=== PATIENT | female | born 1935 | race Caucasian/White ===

== ENCOUNTER 2018-02-18 04:49 | Inpatient (IN) | payer OTHER ==
--- NOTE | 2018-02-18 04:57 | PDOC ---
History of Present Illness - General History Source: Patient - History of Present Illness Initial Comments: 02/18/18 05:12 82 year old female send from inpatient sleep study for having shortness of breath. patient is currently a resident at [facility]. As per family member patient uses a biPAP at nighttime and oxygen during the day. Patient was sent to the sleep study to evaluate the use of CPAP versus BiPAP and rule out severity of obstructive sleep apnea. As per family member patient has been sitting in the chair sleeping since arriving at the sleep study. Patient was having difficulty transferring to the bed from chair.patient reported difficulty after being transferred to the bed to chair. Patient has a past medical history of peripheral vascular disease, A. fib, GERD , shortness of breath, dysphasia, abdominal aortic aneurysm without rupture, acute respiratory failure with hypercapnia, hypertension, morbid obesity, hyperlipidemia, chronic obstructive pulmonary disease, heart failure. 02/18/18 06:09 <Oksana Marti - Last Filed: 02/18/18 06:47> <Svitlana Nguyen - Last Filed: 02/18/18 07:50> - General Chief Complaint: Shortness of Breath Stated Complaint: S.O.B. Time Seen by Provider: 02/18/18 04:57 Past History - Suicide/Smoking/Psychosocial Hx Smoking History: Never smoked Have you smoked in the past 12 months: No Information on smoking cessation initiated: No Hx Alcohol Use: No Drug/Substance Use Hx: No <Oksana Marti - Last Filed: 02/18/18 06:47> <Svitlana Nguyen - Last Filed: 02/18/18 07:50> - Past Medical History Allergies/Adverse Reactions: Allergies Allergy/AdvReac Type Severity Reaction Status Date / Time No Known Allergies Allergy Verified 02/18/18 04:55 Review of Systems - Review of Systems Able to Perform ROS?: Yes Is the patient limited [place] proficient: No Constitutional: No: Symptoms Reported, See HPI, Chills, Diaphoresis, Fever, Loss of Appetite, Malaise, Night Sweats, Weakness, Weight Stable, Unintentional Wgt. Loss, Unexplained wgt Loss, Other Respiratory: Yes: Shortness of Breath Cardiac (ROS): No: Symptoms Reported, See HPI, Chest Pain, Edema, Irregular Heart Rate, Lightheadedness, Palpitations, Syncope, Chest Tightness, Other ABD/GI: No: Symptoms Reported, See HPI, Abdominal Distended, Abd. Pain w/ defecation, Blood Streaked Bowels, Constipated, Diarrhea, Difficulty Swallowing , Nausea, Poor Appetite, Poor Fluid Intake, Rectal Bleeding, Vomiting, Indigestion, Abdominal cramping, Tarry Stools, Other : No: Symptoms Reported, See HPI, Burning, Dysuria, Discharge, Frequency, Flank Pain, Hematuria, Incontinence, Pain, Urgency, Testicular Mass, Testicular Swelling, Lesions, Testicular Pain, Other <Oksana Marti. - Last Filed: 02/18/18 06:47> *Physical Exam - Vital Signs Last Vital Signs Temp Pulse Resp BP Pulse Ox 98.3 F 73 16 138/86 95 02/18/18 04:55 02/18/18 04:55 02/18/18 04:55 02/18/18 04:55 02/18/18 04:55 - Physical Exam General Appearance: Yes: Appropriately Dressed Respiratory/Chest: positive: Lungs Clear, Normal Breath Sounds Cardiovascular: positive: Murmur, Bradycardia Gastrointestinal/Abdominal: positive: Normal Bowel Sounds (final), Soft Extremity: positive: Normal Capillary Refill, Normal Inspection, Normal Range of Motion Integumentary: positive: Normal Color, Dry, Warm Neurologic: positive: Fully Oriented, Alert, Normal Mood/Affect <Oksana Marti. - Last Filed: 02/18/18 06:47> - Vital Signs Last Vital Signs Temp Pulse Resp BP Pulse Ox 98.3 F 70 20 135/75 97 02/18/18 04:55 02/18/18 07:23 02/18/18 07:23 02/18/18 07:23 02/18/18 07:23 <Svitlana Nguyen - Last Filed: 02/18/18 07:50> Moderate Sedation - Procedure Monitoring Vital Signs: Procedure Monitoring Vital Signs Temperature 98.3 F 02/18/18 04:55 Pulse Rate 73 02/18/18 04:55 Respiratory Rate 16 02/18/18 04:55 Blood Pressure 138/86 02/18/18 04:55 O2 Sat by Pulse Oximetry (%) 95 02/18/18 04:55 <Oksana Marti - Last Filed: 02/18/18 06:47> - Procedure Monitoring Vital Signs: Procedure Monitoring Vital Signs Temperature 98.3 F 02/18/18 04:55 Pulse Rate 70 02/18/18 07:23 Respiratory Rate 20 02/18/18 07:23 Blood Pressure 135/75 02/18/18 07:23 O2 Sat by Pulse Oximetry (%) 97 02/18/18 07:23 <Svitlana Nguyen - Last Filed: 02/18/18 07:50> Heart Score/ECG Review - History History: Slightly suspicious - Electrocardiogram EKG: Normal - Age Age: >/= 65 - Risk Factors Risk Factors Heart Score: Yes Hx Hypercholesterolemia, Yes Hx Hypertension, Yes Hx Obesity Based on the list above the patient has:: >/=3 risk factors or Hx atherosclerotic disease - Troponin Troponin: </= normal limit - Score Heart Score - Total: 4 - ECG Intrepretation Comment:: 02/18/18 06:20 A fib : [address] abnormality <Oksana Marti - Last Filed: 02/18/18 06:47> ED Treatment Course - LABORATORY CBC & Chemistry Diagram: 02/18/18 05:44 02/18/18 05:44 <Oksana Marti - Last Filed: 02/18/18 06:47> - LABORATORY CBC & Chemistry Diagram: 02/18/18 05:44 02/18/18 05:44 - ADDITIONAL ORDERS Additional order review: Laboratory Results 02/18/18 02/18/18 05:44 05:44 PT with INR 12.70 INR 1.08 Sodium 139 Potassium 3.9 Chloride 97 L Carbon Dioxide 36 H Anion Gap 6 L BUN 15 Creatinine 0.7 Creat Clearance w eGFR > 60 Random Glucose 96 Calcium 8.9 Magnesium 2.2 Total Bilirubin 0.6 AST 14 L ALT 13 Alkaline Phosphatase 78 Creatine Kinase 26 Troponin I 0.16 H B-Natriuretic Peptide 1248.7 H Total Protein 6.9 Albumin 3.3 L 02/18/18 05:44 RBC 4.38 MCV 88.7 MCHC 32.0 RDW 15.2 MPV 8.2 Neutrophils % 73.7 Lymphocytes % 17.6 Monocytes % 6.3 Eosinophils % 1.3 Basophils % 1.1 <Svitlana Nguyen - Last Filed: 02/18/18 07:50> Progress Note - Progress Note Progress Note: A: Shortness of breath P: cbc cmp cardiac labs chest xray <Oksana Marti - Last Filed: 02/18/18 06:47> Medical Decision Making - Medical Decision Making 02/18/18 06:42 Kayla East paged covering [facility] cardiology paged. will admit for further management of care, 02/18/18 06:47 Dr. chilel aware. advised serial troponin and lasix <Oksana Marti. - Last Filed: 02/18/18 06:47> *DC/Admit/Observation/Transfer <Oksana Marti. - Last Filed: 02/18/18 06:47> - Discharge Dispostion Decision to Admit order: Yes <Svitlana Nguyen - Last Filed: 02/18/18 07:50> Diagnosis at time of Disposition: Shortness of breath, Elevated troponin CHF exacerbation Qualifiers: Heart failure type: unspecified Qualified Code(s): I50.9 - Heart failure, unspecified - Discharge Dispostion Condition at time of disposition: Guarded
[2018-02-18 05:00] VITALS: BMI 27.4
[2018-02-18 06:00] LABS: BASO % 1.1 % (0-2.0); EOS % 1.3 % (0-4.5); HEMATOCRIT 38.8 % (32.4-45.2); HEMOGLOBIN 12.4 GM/dL (10.7-15.3); LYMPH % 17.6 % (8-40); MCH 28.3 pg (25.7-33.7); MEAN CELL VOLUME 88.7 fl (80-96); MEAN PLT VOLUME 8.2 fl (7.5-11.1); MONO % 6.3 % (3.8-10.2); NEUT % 73.7 % (42.8-82.8); PLATELET COUNT 222 K/MM3 (134-434); RBC 4.38 M/mm3 (3.60-5.2); RDW 15.2 % (11.6-15.6); WHITE BLOOD COUNT 11.1 K/mm3 (4.0-10.0)
[2018-02-18 06:19] LABS: INR 1.08 (0.83-1.09); PROTHROMBIN TIME (PATIENT) 12.7 SEC (9.7-13.0)
[2018-02-18 06:34] LABS: ALBUMIN 3.3 g/dl (3.4-5.0); ALK PHOS 78 U/L (45-117); ANION GAP 6 MMOL/L (8-16); BILIRUBIN,TOTAL 0.6 mg/dL (0.2-1); BLOOD UREA NITROGEN 15 mg/dL (7-18); CALCIUM 8.9 mg/dL (8.5-10.1); CHLORIDE 97 mmol/L (98-107); CO2 36 mmol/L (21-32); CREATININE 0.7 mg/dL (0.55-1.3); GLUCOSE,RANDOM 96 mg/dL (74-106); MAGNESIUM 2.2 mg/dL (1.8-2.4); N-TERMINAL BNP 1248.7 pg/ml (5-450); POTASSIUM 3.9 mmol/L (3.5-5.1); SGOT/AST 14 U/L (15-37); SGPT/ALT 13 U/L (13-61); SODIUM 139 mmol/L (136-145); TOT PROT 6.9 g/dl (6.4-8.2)
--- NOTE | 2018-02-18 06:56 | PDOC ---
*Physical Exam - Vital Signs Last Vital Signs Temp Pulse Resp BP Pulse Ox 98.3 F 73 16 138/86 95 02/18/18 04:55 02/18/18 04:55 02/18/18 04:55 02/18/18 04:55 02/18/18 04:55 Heart Score/ECG Review - ECG Impressions Comment:: 02/18/18 06:56 Twelve-lead EKG was performed and reviewed by me. Irregularly irregular Rate of [address]-T wave changes ED Treatment Course - LABORATORY CBC & Chemistry Diagram: 02/18/18 05:44 02/18/18 05:44 - ADDITIONAL ORDERS Additional order review: Laboratory Results 02/18/18 02/18/18 05:44 05:44 PT with INR 12.70 INR 1.08 Sodium 139 Potassium 3.9 Chloride 97 L Carbon Dioxide 36 H Anion Gap 6 L BUN 15 Creatinine 0.7 Creat Clearance w eGFR > 60 Random Glucose 96 Calcium 8.9 Magnesium 2.2 Total Bilirubin 0.6 AST 14 L ALT 13 Alkaline Phosphatase 78 Creatine Kinase 26 Troponin I 0.16 H B-Natriuretic Peptide 1248.7 H Total Protein 6.9 Albumin 3.3 L 02/18/18 05:44 RBC 4.38 MCV 88.7 MCHC 32.0 RDW 15.2 MPV 8.2 Neutrophils % 73.7 Lymphocytes % 17.6 Monocytes % 6.3 Eosinophils % 1.3 Basophils % 1.1 Medical Decision Making - Medical Decision Making 02/18/18 06:54 The patient was seen and evaluated in conjunction with ISAIAH Marti under my direct supervision, ancillary studies were reviewed. I independently interviewed and evaluated the patient and I agree with the plan as outlined by ISAIAH Marti. 82-year-old female multiple medical problems presenting with that of acute shortness breath during her sleep study. No associated chest pain, fever, chills, cough, diaphoresis. PMHx: peripheral vascular disease, A. fib, GERD, shortness of breath, dysphasia , abdominal aortic aneurysm without rupture, acute respiratory failure with hypercapnia, hypertension, morbid obesity, hyperlipidemia, chronic obstructive pulmonary disease, heart failure. Patient's labs noted for borderline troponin Will admit for further management *DC/Admit/Observation/Transfer Diagnosis at time of Disposition: Shortness of breath - Referrals - Patient Instructions - Post Discharge Activity
[2018-02-18] MEDS ORDERED: FUROSEMIDE 100 MG/10 ML INJECTABLE VIAL IVPB ONE (07:05)
[2018-02-18] MEDS ORDERED: FUROSEMIDE 40 MG/4 ML INJECTABLE VIAL ONE (08:25)
[2018-02-18] MEDS ORDERED: HEPARIN NA (PORCINE) 5,000 UNITS/ML 1ML VIAL SQ SCH (08:30)
--- NOTE | 2018-02-18 08:41 | HP ---
CHIEF COMPLAINT: SOB PCP: N/A HISTORY OF PRESENT ILLNESS: History is taken from medical documentation, the patient is not answering any questions, not following commands, no family present at bedside. The pt is a 82 year old female send from inpatient sleep study at [facility] for having shortness of breath. She is a resident at [facility], uses a BiPAP at nighttime and oxygen during the day. Patient was sent to the sleep study to evaluate the use of CPAP versus BiPAP and rule out severity of obstructive sleep apnea, she had difficulty transferring to the bed from chair and expressed difficulty breathing. NH called-nurse supervised denies recent infections, change in mental status. At baseline she is able to answer yes or no to questions. Confirmed soft diet with NH. PMH: peripheral vascular disease, A. fib, GERD, CHF, dysphasia, abdominal aortic aneurysm, hypertension, hyperlipidemia, chronic obstructive pulmonary disease. ER course was notable for: (1)CBC, CMP (2)CXR (3)Furosemide PAST SURGICAL HISTORY: n/a Social History: Smoking:n/a Alcohol:n/a Drugs: n/a Family History: n/a Allergies No Known Allergies Allergy (Verified 02/18/18 04:55) HOME MEDICATIONS: Home Medications Medication Instructions Recorded Aspirin 81 mg PO DAILY 02/18/18 Digoxin [Lanoxin] 125 mcg PO 02/18/18 Digoxin [Lanoxin] 250 mcg PO 02/18/18 Diltiazem [Cardizem -] 30 mg PO BID 02/18/18 Famotidine 20 mg PO DAILY 02/18/18 Furosemide [Lasix] 60 mg PO DAILY 02/18/18 Lactulose 20 gm PO PRN 02/18/18 Melatonin 5 mg PO HSMR1 02/18/18 Mometasone Furoate [Asmanex 220Mcg 2 inh IH BID 02/18/18 -] Multivitamins [Tab-A-Vit -] 1 tab PO DAILY 02/18/18 Simvastatin [Zocor] 10 mg PO HS 02/18/18 Thiamine HCl [Vitamin B-1] 100 mg PO DAILY 02/18/18 REVIEW OF SYSTEMS n/a PHYSICAL EXAMINATION Vital Signs - 24 hr 02/18/18 02/18/18 02/18/18 04:55 05:21 07:23 Temperature 98.3 F Pulse Rate 73 Pulse Rate [ 70 Right Radial] Respiratory 16 20 Rate Blood Pressure 138/86 Blood Pressure 135/75 [Left Arm] O2 Sat by Pulse 95 96 97 Oximetry (%) GENERAL: Awake,AAOx0, in no acute distress. HEAD: Normal with no signs of trauma. EYES: Pupils equal, round and reactive to light, extraocular movements not assessed, sclera anicteric, conjunctiva clear. EARS, NOSE, THROAT: Oropharynx clear without exudates. Moist mucous membranes. NECK: Normal range of motion, supple without lymphadenopathy, JVD, or masses. LUNGS: Breath sounds equal, diminished auscultation anteriorily. No wheezes. No accessory muscle use. HEART: Regular rate and rhythm, normal S1 and S2, systolic murmur over left sternal border, no rub or gallop. ABDOMEN: Soft, nontender, not distended, normoactive bowel sounds, no guarding, no rebound, no masses. MUSCULOSKELETAL: Limited ROM in LLE, rigidity present. No bony deformities or tenderness. UPPER EXTREMITIES: No peripheral edema. LOWER EXTREMITIES: 2+ pulses, warm, 1+ peripheral edema. NEUROLOGICAL: Not following commands, no facial asymmetry, sensation not assessed, motor not assessed. SKIN: Warm, dry, normal turgor, no rashes, longitudinal scar, well healed in mid abdomen. Laboratory Results - last 24 hr 02/18/18 02/18/18 02/18/18 05:44 05:44 05:44 WBC 11.1 H RBC 4.38 Hgb 12.4 Hct 38.8 MCV 88.7 MCH 28.3 MCHC 32.0 RDW 15.2 Plt Count 222 MPV 8.2 Absolute Neuts (auto) 8.2 H Neutrophils % 73.7 Lymphocytes % 17.6 Monocytes % 6.3 Eosinophils % 1.3 Basophils % 1.1 Nucleated RBC % 0 PT with INR 12.70 INR 1.08 Sodium 139 Potassium 3.9 Chloride 97 L Carbon Dioxide 36 H Anion Gap 6 L BUN 15 Creatinine 0.7 Creat Clearance w eGFR > 60 Random Glucose 96 Calcium 8.9 Magnesium 2.2 Total Bilirubin 0.6 AST 14 L ALT 13 Alkaline Phosphatase 78 Creatine Kinase 26 Troponin I 0.16 H B-Natriuretic Peptide 1248.7 H Total Protein 6.9 Albumin 3.3 L ASSESSMENT/PLAN: The pt is a 82 year old female send from inpatient sleep study at [facility] for having shortness of breath. SOB: -it is possibly due to CHF exacerbation, congestion on CXR, elevated BNP, with h /o of heart failure. We also need to r/o ACS with elevated troponin level 0.16, nonspecific ekg changes, HEART score 4, may be due to severe COPD exacerbation, the patient is on 3 L Oxygen during the day and BiPap at night , less likely PNA -will trend troponin, next one at 12 PM, f/u ekg, 6 PM -cardiac monitoring -ECHO ordered, no previous one available in [facility] -f/u CT chest w/o contrast -given lasix 40 mg IV in ED, will continue. Home dose 60 mg PO tomorrow -Sebastian catheter -strict I/O -Soft diet -will order flu swab and Legionella ag A.Fib: -will cont home meds, Dilitiazem, Digoxin, not on AC now UTI: positive UA, likely due to colonization HTN: -cont home meds Dyslipidemia: -cont statins COPD: -continue home meds: Albuterol, Atrovent, Asmanex GERD: -continue Famotidine F/E/N; no/no changes/Soft diet Dispo: telemetry monitoring Medications confirmed withy LA list. Problem List - Problem (1) CHF exacerbation Code(s): I50.9 - HEART FAILURE, UNSPECIFIED Qualifiers: Heart failure type: unspecified Qualified Code(s): I50.9 - Heart failure, unspecified (2) Elevated troponin Code(s): R74.8 - ABNORMAL LEVELS OF OTHER SERUM ENZYMES (3) Shortness of breath Code(s): R06.02 - SHORTNESS OF BREATH Visit type - Emergency Visit Emergency Visit: Yes ED Registration Date: 02/18/18 Care time: The patient presented to the Emergency Department on the above date and was hospitalized for further evaluation of their emergent condition. - New Patient This patient is new to me today: Yes Date on this admission: 02/18/18 - Critical Care Critical Care patient: No
[2018-02-18] MEDS ORDERED: LACTULOSE 20 GM/30 ML UDC (FOR ORAL USE ONLY) PO PRN (08:51)
[2018-02-18] MEDS ORDERED: HEPARIN NA (PORCINE) 5,000 UNITS/ML 1ML VIAL ONE (09:38)
--- NOTE | 2018-02-18 09:39 | EKG ---
Test Reason : Blood Pressure : / mmHG Vent. Rate : 069 BPM Atrial Rate : 288 BPM P-R Int : 000 ms QRS Dur : 096 ms QT Int : 386 ms P-R-T Axes : 000 -14 052 degrees QTc Int : 413 ms POOR DATA QUALITY, INTERPRETATION MAY BE ADVERSELY AFFECTED ATRIAL FIBRILLATION MODERATE VOLTAGE CRITERIA FOR LVH, MAY BE NORMAL VARIANT NONSPECIFIC ST ABNORMALITY ABNORMAL ECG NO PREVIOUS ECGS AVAILABLE Confirmed by EDGARDO BRYAN, GABRIEL ([id number]) on 02/18/2018 9:38:55 AM Referred By: Confirmed By:GABRIEL REYNOSO MD
[2018-02-18 09:54] LABS: URINE APPEARANCE TURBID; URINE BILIRUBIN NEGATIVE (<2.0 mg/dL); URINE COLOR DKYELLOW; URINE GLUCOSE (UA) NEGATIVE (NEGATIVE); URINE KETONE NEGATIVE (NEGATIVE); URINE LEUK ESTERASE 3+ (NEGATIVE); URINE NITRITE POSITIVE (NEGATIVE); URINE PROTEIN NEGATIVE (NEGATIVE)
[2018-02-18 09:55] LABS: EPI CELLS RARE /HPF (FEW); URINE BACTERIA MANY /hpf (NONE SEEN); URINE HYALINE CAST 29 /lpf; YEAST FEW
[2018-02-18] MEDS ORDERED: PATIENT'S OWN MEDICATION (NON-FORMULARY) (Umeclidinium Bromide [Incruse Ellipta] 1 PUFF) IH SCH (10:00)
[2018-02-18] MEDS ORDERED: ALBUTEROL SO4 0.5 % INH SOLN 2.5 MG/0.5 ML VIAL.NEB. NEB PRN (10:30)
[2018-02-18] MEDS: THIAMINE HCL 100 MG TABLET (FP) PO SCH (10:39)
[2018-02-18] MEDS: RANITIDINE HCL 150 MG TABLET (FP) PO SCH (10:39)
[2018-02-18] MEDS: dilTIAZem HCL 30 MG TABLET (FP) PO SCH ×2 (10:39→21:00)
[2018-02-18] MEDS: DIGOXIN 0.25 MG TABLET (FP) PO SCH (10:39)
[2018-02-18] MEDS: ASPIRIN 81 MG CHEWABLE TABLETS PO SCH (10:39)
[2018-02-18] MEDS: MULTIVITAMINS (DAILY MVI) TABLET (FP) PO SCH (10:39)
--- NOTE | 2018-02-18 10:50 | ECHO ---
Name: BLAIR RAWLS Exam:Adult Echocardiogram Study Date: 02/18/2018 10:13 AM Age: 82 yrs Reason For Study: CHF Height: 62 in Weight: 150 lb BSA: 1.7 m2 Doppler Measurements & Calculations Med Peak E' Keron: 6.4 cm/sec Lat Peak E' Keron: 6.3 cm/sec Procedure The study was technically difficult with many images being suboptimal in quality. Left Ventricle Left ventricular systolic function is grossly normal. Regional wall motion abnormalities cannot be ex cluded due to limited visualization. Right Ventricle The right ventricle is grossly normal size. The right ventricular systolic function is grossly normal . Atria The left atrium is mildly dilated. Mitral Valve The mitral valve is normal in structure and function. There is no mitral valve stenosis. There is mil d mitral regurgitation. Tricuspid Valve The tricuspid valve is normal in structure and function. There is mild tricuspid regurgitation. Aortic Valve The aortic valve is not well visualized. There is mild aortic sclerosis.;. No hemodynamically signifi cant valvular aortic stenosis. No aortic regurgitation is present. Pulmonic Valve The pulmonic valve is not well seen, but is grossly normal. There is no pulmonic valvular stenosis. T here is no pulmonic valvular regurgitation. Great Vessels The aortic root is normal size. Pericardium/Pleura There is no pericardial effusion. Interpretation Summary The study was technically difficult with many images being suboptimal in quality. Regional wall motion abnormalities cannot be excluded due to limited visualization. Left ventricular systolic function is grossly normal. The left atrium is mildly dilated. There is mild mitral regurgitation. There is mild tricuspid regurgitation. The aortic valve is not well visualized. There is mild aortic sclerosis.; There is no pericardial effusion. MD Barkley *Cleo 02/18/2018 10:49 AM
--- NOTE | 2018-02-18 11:36 | PN ---
Teaching Attending Note Name of Resident: Kathi Rivero ATTENDING PHYSICIAN STATEMENT I saw and evaluated the patient. I reviewed the resident's note and discussed the case with the resident. I agree with the resident's findings and plan as documented. CC: sent from the sleep study unit for respiratory distress HPI: she is a 82 y/O F W dementia, severe COPD and chronic hypoxic respiratory failure on Home O2 and CPAP at home , PHTN, XI, BIPAP at night, afib( on dig/ dilt), HFPEF. she was initially sent to the sleep study for resetting the BIPAP / CPAP and she she was SOB she was sent to the ED. in the ED she is pleasnatly demented, on 2l NC sat 95% and has orthopnea, unclear the acuity of the complaints in the ED in the setting of orthopnea,elevated ProBNP in 1200 despite of lack of peripheral edema, lack of Pulmonary edema or pleural effusion on CXR she was given IV lasix. she also was found to have elevated troponin with NL CPK , EKG of afib with non significant TW abnormalities i the 1, AVL leads.( no previous EKG). At the time of my exam she is sit Last Vital Signs Temp Pulse Resp BP Pulse Ox 98.3 F 70 20 135/75 97 02/18/18 04:55 02/18/18 07:23 02/18/18 07:23 02/18/18 07:23 02/18/18 07:23 She is demented patient who can follow commands, aware of herself but not he place at this time in the ED( unlcear baseline MS) Has O2 NC on 2l. Sitting in the bed in no severe respiratory distress and no use of accessory muscles MMM No ocular discharge No nasal discharge CVS:S1S2 has good air movement, has no rales ( has just got the lasix and not urinated yet) Abd: BS+ nt/nd EXT: warm, no edema has a short tick neck and hard to evaluate the JVP. CBCD WBC 11.1 K/mm3 (4.0-10.0) H 02/18/18 05:44 RBC 4.38 M/mm3 (3.60-5.2) 02/18/18 05:44 Hgb 12.4 GM/dL (10.7-15.3) 02/18/18 05:44 Hct 38.8 % (32.4-45.2) 02/18/18 05:44 MCV 88.7 fl (80-96) 02/18/18 05:44 MCHC 32.0 g/dl (32.0-36.0) 02/18/18 05:44 RDW 15.2 % (11.6-15.6) 02/18/18 05:44 Plt Count 222 K/MM3 (134-434) 02/18/18 05:44 MPV 8.2 fl (7.5-11.1) 02/18/18 05:44 CMP Sodium 139 mmol/L (136-145) 02/18/18 05:44 Potassium 3.9 mmol/L (3.5-5.1) 02/18/18 05:44 Chloride 97 mmol/L (98-107) L 02/18/18 05:44 Carbon Dioxide 36 mmol/L (21-32) H 02/18/18 05:44 Anion Gap 6 MMOL/L (8-16) L 02/18/18 05:44 BUN 15 mg/dL (7-18) 02/18/18 05:44 Creatinine 0.7 mg/dL (0.55-1.3) 02/18/18 05:44 Creat Clearance w eGFR > 60 (>60) 02/18/18 05:44 Random Glucose 96 mg/dL (74-106) 02/18/18 05:44 Calcium 8.9 mg/dL (8.5-10.1) 02/18/18 05:44 Total Bilirubin 0.6 mg/dL (0.2-1) 02/18/18 05:44 AST 14 U/L (15-37) L 02/18/18 05:44 ALT 13 U/L (13-61) 02/18/18 05:44 Alkaline Phosphatase 78 U/L (45-117) 02/18/18 05:44 Total Protein 6.9 g/dl (6.4-8.2) 02/18/18 05:44 Albumin 3.3 g/dl (3.4-5.0) L 02/18/18 05:44 CARDIAC ENZYMES Creatine Kinase 26 IU/L (26-192) 02/18/18 05:44 Troponin I 0.16 ng/ml (0.00-0.05) H 02/18/18 05:44 Current Medications Generic Name Dose Route Start Last Admin Trade Name Freq PRN Reason Stop Dose Admin Albuterol Sulfate 1 amp 02/18/18 10:30 Ventolin 0.5% - NEB Q6H PRN SHORTNESS OF BREATH Aspirin 81 mg 02/18/18 10:00 02/18/18 10:39 Asa - PO 81 mg DAILY MAGGY Administration Atorvastatin Calcium 10 mg 02/18/18 22:00 Lipitor - PO HS MAGGY Digoxin 0.125 mg 02/19/18 10:00 Lanoxin - PO TuThSa@1000 MAGGY Digoxin 0.25 mg 02/18/18 10:00 02/18/18 10:39 Lanoxin - PO 0.25 mg SuMoWeFr@1000 MAGGY Administration Diltiazem HCl 30 mg 02/18/18 10:00 02/18/18 10:39 Cardizem - PO 30 mg BID MAGGY Administration Furosemide 60 mg 02/19/18 10:00 Lasix - PO DAILY MAGGY Heparin Sodium (Porcine) 5,000 unit 02/18/18 22:00 Heparin - SQ BID MAGGY Lactulose 20 gm 02/18/18 08:51 Cephulac (Oral Use) PO DAILY PRN CONSTIPATION Melatonin 5 mg 02/18/18 22:00 Melatonin PO HSMR1 MAGGY Methyl Salicylate 1 applic 02/18/18 11:00 [place] - TP BID MAGGY Mometasone Furoate 2 puff 02/18/18 11:00 Asmanex 220mcg - IH BID MAGGY Multivitamins/Minerals/Vitamin C 1 tab 02/18/18 10:00 02/18/18 10:39 Tab-A-Vit - PO 1 tab DAILY MAGGY Administration Non-Formulary Medication 1 puff 02/18/18 10:00 Umeclidinium [place] [Incruse Ellipta] IH DAILY MAGGY Ranitidine HCl 150 mg 02/18/18 10:00 02/18/18 10:39 Zantac - PO 150 mg DAILY MAGGY Administration Thiamine HCl 100 mg 02/18/18 10:00 02/18/18 10:39 Vitamin B1 - PO 100 mg DAILY MAGGY Administration A&P: orthopnea: unclear for how long she has been like this which makes providing clear diagnosis hard at this time and will need further information gathering from [place]. she has very sever COPD and chronic hypoxic respiratory failure for which she is on home 2 and Will send ABG Will C/W O2 NC 2L W goal O2 sat in low 90s. Will C/W home inhalors at this time Chest CT done and shows mo d lung disease and lipimyomatosis of the heart( will F/U with cardiology in this regards) elevation of ProBNP is not significant and is mostly of pulmonary origin and not acute decompensated HF. So will C/W home medication for HF and AFIB Rate is well controlled and less likely to have had flash pulmonary edema as cause of her SOB episode. will add atrovent to her nebs Elevated torponin level: She has Nl CPK so less likely to be acute event at this time. She may have had an event couple of days ago, will monitor the trops and EKG, TTE could not R/O wall motion abnormalities. has been evaluated by cardiology and their recs appreciated. Will not start for treatment for [place] OR nstemi at this time. as she denies any chest pain at this time. she is currently on ASA, low does statin, not on B gabriella due to severe COPD Afib: well controlled rate, will C/W current medication regimen, unclear why not on AC at this time. DIspo: back to NH pending further W/U dvt PPX: LOVENOX SQ
--- NOTE | 2018-02-18 12:53 | CON.CARD ---
Consult Consult Specialty:: Cardiology Reason for Consultation:: Dyspnea - History of Present Illness History of Present Illness: Patient is responsive and able to give history. 82 year old female sent from inpatient sleep study at [facility] for having shortness of breath. She is a resident at [facility], uses a BiPAP at nighttime and oxygen during the day. Patient was sent to the sleep study to evaluate the use of CPAP versus BiPAP and rule out severity of obstructive sleep apnea and expressed difficulty breathing. Echocardiogram was technically limited. WMA cannot be excluded. No RV abnormalities. CT chest normal lungs ?RV abnormality. ECG shows Afib with no ischemic changes. There is mild TP elevation. - History Source History Provided By: Patient, Medical Record Limitations to Obtaining History: No Limitations - Alcohol/Substance Use Hx Alcohol Use: No - Smoking History Smoking history: Never smoked Have you smoked in the past 12 months: No Home Medications - Allergies Allergies/Adverse Reactions: Allergies Allergy/AdvReac Type Severity Reaction Status Date / Time No Known Allergies Allergy Verified 02/18/18 04:55 - Home Medications Home Medications: Ambulatory Orders Aspirin 81 mg PO DAILY 02/18/18 Digoxin [Lanoxin] 125 mcg PO 02/18/18 Digoxin [Lanoxin] 250 mcg PO 02/18/18 Diltiazem [Cardizem -] 30 mg PO BID 02/18/18 Famotidine 20 mg PO DAILY 02/18/18 Furosemide [Lasix] 60 mg PO DAILY 02/18/18 Lactulose 20 gm PO PRN 02/18/18 Levalbuterol HCl [Xopenex] 1.25 mg IH Q8H 02/18/18 Melatonin 5 mg PO HSMR1 02/18/18 Menthol [Bengay Ultra Strength] 1 each TP BID 02/18/18 Mometasone Furoate [Asmanex 220Mcg -] 2 inh IH BID 02/18/18 Multivitamins [Tab-A-Vit -] 1 tab PO DAILY 02/18/18 Simvastatin [Zocor] 10 mg PO HS 02/18/18 Thiamine HCl [Vitamin B-1] 100 mg PO DAILY 02/18/18 Umeclidinium [place] [Incruse Ellipta] 1 puff IH DAILY 02/18/18 Review of Systems - Review of Systems Constitutional: reports: No Symptoms Eyes: reports: No Symptoms HENT: reports: No Symptoms Neck: reports: No Symptoms Cardiovascular: reports: Shortness of Breath. denies: Chest Pain, Edema Respiratory: reports: Cough, SOB Gastrointestinal: reports: No Symptoms Genitourinary: reports: No Symptoms Vital Signs: Vital Signs Temperature 98.3 F 02/18/18 04:55 Pulse Rate 70 02/18/18 07:23 Respiratory Rate 20 02/18/18 07:23 Blood Pressure 135/75 02/18/18 07:23 O2 Sat by Pulse Oximetry (%) 97 02/18/18 07:23 Constitutional: Yes: Thin Eyes: Yes: Conjunctiva Clear, EOM Intact HENT: Yes: Atraumatic, Normocephalic Neck: Yes: Supple, Trachea Midline Respiratory: Yes: Regular, Cough, Diminished Gastrointestinal: Yes: Normal Bowel Sounds Heart Sounds: Yes: S1, S2 Murmur: No: Systolic Murmur, Diastolic Murmur Edema: No - Other Data Labs, Other Data: CBC, BMP 02/18/18 05:44 02/18/18 05:44 INR, PTT INR 1.08 (0.83-1.09) 02/18/18 05:44 Troponin, BNP 02/18/18 05:44 Troponin I 0.16 H B-Natriuretic Peptide 1248.7 H Troponin, BNP 02/18/18 05:44 Troponin I 0.16 H B-Natriuretic Peptide 1248.7 H Afib nl axis LVH no ST T changes. Imaging - Results EKG: Image Reviewed (Afib LVH no ST T changes.) Problem List - Problems (1) Elevated troponin Code(s): R74.8 - ABNORMAL LEVELS OF OTHER SERUM ENZYMES (2) Afib Code(s): I48.91 - UNSPECIFIED ATRIAL FIBRILLATION Assessment/Plan 82 F with newly noted Afib and dyspnea with minimally elevated TP level. Echocardiogram was technically difficult without overt wall motion abnormalities and no valvular pathology. SOB Her dyspnea is not likely to be from significant heart failure. CT chest and exam does not support this. Likely to have COPD. Pulmonary consult. Afib with adequate HR control. Check dig level. Would consider using anticoagulation to reduce stroke risk. Diltiazem 30mg bid. Elevated TP. Minimally elevated without dynamic change or ECG abnormality. Unlikely to be due to ACS and not related to patients respiratory symptoms.
[2018-02-18] MEDS: MOMETASONE FUROATE 220 MCG/IH INHALER IH SCH ×2 (13:45→22:03)
[2018-02-18] MEDS: METHYL SALICYLATE/MENTHOL OINT 30 GM TUBE TP SCH ×2 (14:06→22:03)
[2018-02-18] MEDS ORDERED: IPRATROPIUM BR 0.02% 0.5 MG/2.5 ML VIAL.NEB. NEB ONE (14:07)
[2018-02-18] MEDS: IPRATROPIUM BR 0.02% 0.5 MG/2.5 ML VIAL.NEB. NEB SCH ×3 (14:55→20:05)
--- NOTE | 2018-02-18 19:09 | EKG ---
Test Reason : Blood Pressure : / mmHG Vent. Rate : 066 BPM Atrial Rate : 068 BPM P-R Int : 000 ms QRS Dur : 098 ms QT Int : 396 ms P-R-T Axes : 000 -05 111 degrees QTc Int : 415 ms ATRIAL FIBRILLATION NONSPECIFIC ST AND T WAVE ABNORMALITY ABNORMAL ECG WHEN COMPARED WITH ECG OF 18-FEB-2018 05:46, NO SIGNIFICANT CHANGE WAS FOUND Confirmed by EDGARDO BRYAN, GABRIEL ([id number]) on 02/18/2018 7:08:43 PM Referred By: SOILA PASCUAL Confirmed By:GABRIEL REYNOSO MD
[2018-02-18 19:24] LABS: ARTERIAL BLD GAS O2 SATURATION 88.6 % (90-98.9); ARTERIAL BLOOD GAS BASE EXCESS 11.8 meq/l (-2-2); ARTERIAL BLOOD GAS PO2 54.6 mmHg (68-100); ARTERIAL BLOOD GAS pH 7.47 (7.35-7.45)
[2018-02-18 19:25] LABS: ALLENS TEST POSITIVE
[2018-02-18] MEDS ORDERED: PT OWN MED DRAWER 7, Y5N ONE (20:53)
[2018-02-18] MEDS: ATORVASTATIN CA 10 MG TABLET (FP) PO SCH (21:00)
[2018-02-18] MEDS: MELATONIN 5 MG TABLETS PO SCH (21:01)
[2018-02-18] MEDS: HEPARIN NA (PORCINE) 5,000 UNITS/ML 1ML VIAL SQ SCH (21:01)
[2018-02-19] MEDS: MELATONIN 5 MG TABLETS PO SCH ×2 (02:46→22:14)
[2018-02-19] MEDS: IPRATROPIUM BR 0.02% 0.5 MG/2.5 ML VIAL.NEB. NEB SCH ×4 (07:50→20:17)
[2018-02-19 07:59] LABS: BASO % 0.7 % (0-2.0); EOS % 1.1 % (0-4.5); HEMATOCRIT 35.9 % (32.4-45.2); HEMOGLOBIN 12.4 GM/dL (10.7-15.3); LYMPH % 15.9 % (8-40); MCH 30.2 pg (25.7-33.7); MCHC 34.4 g/dl (32.0-36.0); MEAN CELL VOLUME 87.6 fl (80-96); MEAN PLT VOLUME 8.5 fl (7.5-11.1); MONO % 6.8 % (3.8-10.2); NEUT % 75.5 % (42.8-82.8); PLATELET COUNT 237 K/MM3 (134-434); RDW 15.8 % (11.6-15.6); WHITE BLOOD COUNT 9.7 K/mm3 (4.0-10.0)
[2018-02-19 08:33] LABS: ALBUMIN 2.9 g/dl (3.4-5.0); ALK PHOS 70 U/L (45-117); ANION GAP 5 MMOL/L (8-16); BILIRUBIN,TOTAL 0.9 mg/dL (0.2-1); BLOOD UREA NITROGEN 20 mg/dL (7-18); CALCIUM 8.9 mg/dL (8.5-10.1); CHLORIDE 97 mmol/L (98-107); CHOLESTEROL 183 mg/dL (50-200); CO2 37 mmol/L (21-32); CREATININE 0.7 mg/dL (0.55-1.3); GLUCOSE,RANDOM 87 mg/dL (74-106); HDL CHOLESTEROL 37 mg/dL (40-60); MAGNESIUM 2.3 mg/dL (1.8-2.4); PHOSPHOROUS 4.3 mg/dL (2.5-4.9); POTASSIUM 3.8 mmol/L (3.5-5.1); SGOT/AST 12 U/L (15-37); SGPT/ALT 13 U/L (13-61); SODIUM 140 mmol/L (136-145); TOT PROT 6.5 g/dl (6.4-8.2); TRIGLYCERIDES 267 mg/dL (0-150)
[2018-02-19] MEDS: FUROSEMIDE 20 MG TABLET (FP) PO SCH (09:44)
[2018-02-19] MEDS: ASPIRIN 81 MG CHEWABLE TABLETS PO SCH (09:44)
[2018-02-19] MEDS: HEPARIN NA (PORCINE) 5,000 UNITS/ML 1ML VIAL SQ SCH ×2 (09:44→22:14)
[2018-02-19] MEDS: RANITIDINE HCL 150 MG TABLET (FP) PO SCH (09:44)
[2018-02-19] MEDS: dilTIAZem HCL 30 MG TABLET (FP) PO SCH ×2 (09:44→22:14)
[2018-02-19] MEDS: THIAMINE HCL 100 MG TABLET (FP) PO SCH (09:44)
[2018-02-19] MEDS: MULTIVITAMINS (DAILY MVI) TABLET (FP) PO SCH (09:44)
[2018-02-19] MEDS: MOMETASONE FUROATE 220 MCG/IH INHALER IH SCH ×2 (09:45→22:13)
[2018-02-19] MEDS: METHYL SALICYLATE/MENTHOL OINT 30 GM TUBE TP SCH ×2 (09:45→22:13)
[2018-02-19] MEDS ORDERED: DIGOXIN 0.125 MG TABLET (FP) PO SCH (10:00)
--- NOTE | 2018-02-19 13:21 | CON.PULM ---
Consult Consult Specialty:: PULMONARY Referred by:: SUELLEN Reason for Consultation:: SOB - History of Present Illness Chief Complaint: SOB History of Present Illness: 82 year old female send from inpatient sleep study for having shortness of breath. patient is currently a resident at [facility]. As per family member patient uses a biPAP at nighttime and oxygen during the day. Patient was sent to the sleep study to evaluate the use of CPAP versus BiPAP and rule out severity of obstructive sleep apnea. As per family member patient has been sitting in the chair sleeping since arriving at the sleep study. Patient was having difficulty transferring to the bed from chair.patient reported difficulty after being transferred to the bed to chair. Patient has a past medical history of peripheral vascular disease, A. fib, GERD , shortness of breath, dysphasia, abdominal aortic aneurysm without rupture, acute respiratory failure with hypercapnia, hypertension, morbid obesity, hyperlipidemia, chronic obstructive pulmonary disease, heart failure. - History Source History Provided By: Medical Record Limitations to Obtaining History: Clinical Condition - Past Medical History Cardio/Vascular: Yes: AFIB, CHF, HTN, Hyperlipdemia, Other (CARDIOMEGALY/AAA S/ P STENT) Pulmonary: Yes: COPD, Sleep Apnea, Other (HYPERCAPNEIC RESP FAILURE) Gastrointestinal: Yes: GERD Reproductive: Yes: Postmenopausal ...: No Heme/Onc: No: Anemia Psych: No: Addictions Musculoskeletal: Yes: Chronic low back pain, Osteoarthritis Endocrine: No: Diabetes Mellitus - Alcohol/Substance Use Hx Alcohol Use: No History of Substance Use: reports: None - Smoking History Smoking history: Never smoked Have you smoked in the past 12 months: No - Social History Usual Living Arrangement: Senior [facility] Place of : [facility] History of Recent Travel: No Home Medications - Allergies Allergies/Adverse Reactions: Allergies Allergy/AdvReac Type Severity Reaction Status Date / Time No Known Allergies Allergy Verified 02/18/18 04:55 - Home Medications Home Medications: Ambulatory Orders Aspirin 81 mg PO DAILY 02/18/18 Digoxin [Lanoxin] 125 mcg PO 02/18/18 Digoxin [Lanoxin] 250 mcg PO 02/18/18 Diltiazem [Cardizem -] 30 mg PO BID 02/18/18 Famotidine 20 mg PO DAILY 02/18/18 Furosemide [Lasix] 60 mg PO DAILY 02/18/18 Lactulose 20 gm PO PRN 02/18/18 Levalbuterol HCl [Xopenex] 1.25 mg IH Q8H 02/18/18 Melatonin 5 mg PO HSMR1 02/18/18 Menthol [Bengay Ultra Strength] 1 each TP BID 02/18/18 Mometasone Furoate [Asmanex 220Mcg -] 2 inh IH BID 02/18/18 Multivitamins [Tab-A-Vit -] 1 tab PO DAILY 02/18/18 Simvastatin [Zocor] 10 mg PO HS 02/18/18 Thiamine HCl [Vitamin B-1] 100 mg PO DAILY 02/18/18 Umeclidinium [place] [Incruse Ellipta] 1 puff IH DAILY 02/18/18 Family Disease History - Family Disease History Family History: Unremarkable Review of Systems Unable to obtain ROS, reason: PATIENT IS POOR INFORMANT Physical Exam Vital Sings: Vital Signs Temperature 99.2 F 02/19/18 10:00 Pulse Rate 70 02/19/18 10:00 Respiratory Rate 20 02/19/18 10:00 Blood Pressure 130/73 02/19/18 10:00 O2 Sat by Pulse Oximetry (%) 96 02/19/18 09:00 Constitutional: Yes: Calm Eyes: Yes: EOM Intact HENT: Yes: Normocephalic Neck: Yes: Trachea Midline Cardiovascular: Yes: Pulse Irregular, S1, S2 Respiratory: Yes: Diminished (Bilateral Bases) ...Clubbing: No Gastrointestinal: Yes: Normal Bowel Sounds, Soft, Abdomen, Obese Edema: No Neurological: Yes: Alert Labs: CBC, BMP 02/19/18 06:30 02/19/18 06:30 ABG Results ABG pH 7.47 (7.35-7.45) H 02/18/18 18:35 ABG pCO2 at Pt Temp 52.0 mmHg (35-45) H 02/18/18 18:35 ABG pO2 at Pt Temp 54.6 mmHg (68-100) L 02/18/18 18:35 ABG HCO3 37.3 meq/L (22-26) H 02/18/18 18:35 ABG O2 Sat (Measured) 88.6 % (90-98.9) L 02/18/18 18:35 ABG O2 Content 15.4 % vol (15-22) 02/18/18 18:35 ABG Base Excess 11.8 meq/l (-2-2) H 02/18/18 18:35 REST REVIEWED Imaging - Results Chest X-ray: Report Reviewed, Image Reviewed Cat Scan: Report Reviewed, Image Reviewed EKG: Report Reviewed, Image Reviewed Other: Report Reviewed Problem List - Problems (1) COPD (chronic obstructive pulmonary disease) Code(s): J44.9 - CHRONIC OBSTRUCTIVE PULMONARY DISEASE, UNSPECIFIED (2) Afib Code(s): I48.91 - UNSPECIFIED ATRIAL FIBRILLATION (3) CHF exacerbation Code(s): I50.9 - HEART FAILURE, UNSPECIFIED Qualifiers: Heart failure type: unspecified Qualified Code(s): I50.9 - Heart failure, unspecified (4) Shortness of breath Code(s): R06.02 - SHORTNESS OF BREATH (5) XI (obstructive sleep apnea) Code(s): G47.33 - OBSTRUCTIVE SLEEP APNEA (ADULT) (PEDIATRIC) (6) Hypercapnia Code(s): R06.89 - OTHER ABNORMALITIES OF BREATHING Assessment/Plan O2 SUPPLEMENTATION NEEDED BRONCHODILATORS GENTLE DIURESIS DIG/DILTIAZEM/RATE CONTROL NEEDS A/C IF NO ABSOLUTE CONTRAINDICATION WILL FOLLOW Hazel HILTON MD
--- NOTE | 2018-02-19 14:25 | PN ---
Physical Exam: SUBJECTIVE: Patient seen and examined, she is similar to how she was yesterday in the ED which is her baseline pre NH staff. no new complaints OBJECTIVE: Vital Signs Period Temp Pulse Resp BP Sys/Pimentel Pulse Ox Last 24 Hr 98 F-99.2 F 64-84 18-20 120-141/54-73 96-97 GENERAL: she is in no significant respiratory distress at this time. CVS:S1S2 CTAB, on 2l NC, in no distress, she talks in full sentence, good air movement ABD: BS+ nt/nd Laboratory Results - last 24 hr 02/18/18 02/18/18 02/19/18 18:00 18:35 06:30 WBC 9.7 RBC 4.10 Hgb 12.4 Hct 35.9 MCV 87.6 MCH 30.2 MCHC 34.4 RDW 15.8 H Plt Count 237 MPV 8.5 Absolute Neuts (auto) 7.3 Neutrophils % 75.5 Lymphocytes % 15.9 Monocytes % 6.8 Eosinophils % 1.1 Basophils % 0.7 Nucleated RBC % 0 Anticoagulation Therapy No Result Required. Puncture Site No Result Required. ABG pH 7.47 H ABG pCO2 at Pt Temp 52.0 H ABG pO2 at Pt Temp 54.6 L ABG HCO3 37.3 H ABG O2 Sat (Measured) 88.6 L ABG O2 Content 15.4 ABG Base Excess 11.8 H Freeman Test Positive O2 Delivery Device No Result Required. Oxygen Flow Rate No Result Required. Vent Mode No Result Required. Vent Rate No Result Required. Mechanical Rate No Result Required. Pressure Support Vent No Result Required. Sodium Potassium Chloride Carbon Dioxide Anion Gap BUN Creatinine Creat Clearance w eGFR Random Glucose Calcium Phosphorus Magnesium Total Bilirubin AST ALT Alkaline Phosphatase Troponin I 0.14 H Total Protein Albumin Triglycerides Cholesterol Total LDL Cholesterol HDL Cholesterol 02/19/18 06:30 WBC RBC Hgb Hct MCV MCH MCHC RDW Plt Count MPV Absolute Neuts (auto) Neutrophils % Lymphocytes % Monocytes % Eosinophils % Basophils % Nucleated RBC % Anticoagulation Therapy Puncture Site ABG pH ABG pCO2 at Pt Temp ABG pO2 at Pt Temp ABG HCO3 ABG O2 Sat (Measured) ABG O2 Content ABG Base Excess Freeman Test O2 Delivery Device Oxygen Flow Rate Vent Mode Vent Rate Mechanical Rate Pressure Support Vent Sodium 140 Potassium 3.8 Chloride 97 L Carbon Dioxide 37 H Anion Gap 5 L BUN 20 H Creatinine 0.7 Creat Clearance w eGFR > 60 Random Glucose 87 Calcium 8.9 Phosphorus 4.3 Magnesium 2.3 Total Bilirubin 0.9 AST 12 L ALT 13 Alkaline Phosphatase 70 Troponin I Total Protein 6.5 Albumin 2.9 L Triglycerides 267 H Cholesterol 183 Total LDL Cholesterol 108 H HDL Cholesterol 37 L Active Medications Generic Name Dose Route Start Last Admin Trade Name Freq PRN Reason Stop Dose Admin Albuterol Sulfate 1 amp 02/18/18 10:30 Ventolin 0.5% - NEB Q6H PRN SHORTNESS OF BREATH Aspirin 81 mg 02/18/18 10:00 02/19/18 09:44 Asa - PO 81 mg DAILY MAGGY Administration Atorvastatin Calcium 10 mg 02/18/18 22:00 02/18/18 21:00 Lipitor - PO 10 mg HS MAGGY Administration Digoxin 0.125 mg 02/19/18 10:00 02/19/18 09:44 Lanoxin - PO 0.125 mg TuThSa@1000 MAGGY Administration Digoxin 0.25 mg 02/18/18 10:00 02/18/18 10:39 Lanoxin - PO 0.25 mg SuMoWeFr@1000 MAGGY Administration Diltiazem HCl 30 mg 02/18/18 10:00 02/19/18 09:44 Cardizem - PO 30 mg BID MAGGY Administration Furosemide 60 mg 02/19/18 10:00 02/19/18 09:44 Lasix - PO 60 mg DAILY MAGGY Administration Heparin Sodium (Porcine) 5,000 unit 02/18/18 22:00 02/19/18 09:44 Heparin - SQ 5,000 unit BID MAGGY Administration Ipratropium [place] 1 amp 02/18/18 12:45 02/19/18 11:20 Atrovent 0.02% Nebulizer - NEB 1 amp RQID MAGGY Administration Lactulose 20 gm 02/18/18 08:51 Cephulac (Oral Use) PO DAILY PRN CONSTIPATION Melatonin 5 mg 02/18/18 22:00 02/19/18 02:46 Melatonin PO Not Given HSMR1 MAGGY Methyl Salicylate 1 applic 02/18/18 11:00 02/19/18 09:45 [place] - TP 1 applic BID MAGGY Administration Mometasone Furoate 2 puff 02/18/18 11:00 02/19/18 09:45 Asmanex 220mcg - IH 2 puff BID MAGGY Administration Multivitamins/Minerals/Vitamin C 1 tab 02/18/18 10:00 02/19/18 09:44 Tab-A-Vit - PO 1 tab DAILY MAGGY Administration Non-Formulary Medication 1 puff 02/18/18 10:00 Umeclidinium [place] [Incruse Ellipta] IH DAILY MAGGY Ranitidine HCl 150 mg 02/18/18 10:00 02/19/18 09:44 Zantac - PO 150 mg DAILY MAGGY Administration Thiamine HCl 100 mg 02/18/18 10:00 02/19/18 09:44 Vitamin B1 - PO 100 mg DAILY MAGGY Administration ASSESSMENT/PLAN: SOB: likely in the setting of basleine COPD which has been a new finding for the staff at the sleep study facility. no need for further intervention at this time, pending DC back to the [place] current management Visit type - Emergency Visit Emergency Visit: No - New Patient This patient is new to me today: No - Critical Care Critical Care patient: No - Discharge Referral Referred to [facility] Med P.C.: No
--- NOTE | 2018-02-19 16:33 | PN ---
Progress Note, Physician Chief Complaint: Resting comfortably History of Present Illness: This is a 82 year old female sent from inpatient sleep study at [facility] for having shortness of breath. She is a resident at [facility], uses a BiPAP at nighttime and oxygen during the day. Patient was sent to the sleep study to evaluate the use of CPAP versus BiPAP and rule out severity of obstructive sleep apnea and expressed difficulty breathing. Echocardiogram was technically limited. WMA cannot be excluded. No RV abnormalities. CT chest normal lungs ?RV abnormality. ECG shows Afib with no ischemic changes. There is mild TP elevation. - Current Medication List Current Medications: Active Medications Albuterol Sulfate (Ventolin 0.5% -) 1 amp NEB Q6H PRN PRN Reason: SHORTNESS OF BREATH Aspirin (Asa -) 81 mg PO DAILY [facility] Last Admin: 02/19/18 09:44 Dose: 81 mg Atorvastatin Calcium (Lipitor -) 10 mg PO HS [facility] Last Admin: 02/18/18 21:00 Dose: 10 mg Digoxin (Lanoxin -) 0.125 mg PO TuThSa@1000 [facility] Last Admin: 02/19/18 09:44 Dose: 0.125 mg Digoxin (Lanoxin -) 0.25 mg PO SuMoWeFr@1000 [facility] Last Admin: 02/18/18 10:39 Dose: 0.25 mg Diltiazem HCl (Cardizem -) 30 mg PO BID [facility] Last Admin: 02/19/18 09:44 Dose: 30 mg Furosemide (Lasix -) 60 mg PO DAILY [facility] Last Admin: 02/19/18 09:44 Dose: 60 mg Heparin Sodium (Porcine) (Heparin -) 5,000 unit SQ BID [facility] Last Admin: 02/19/18 09:44 Dose: 5,000 unit Ipratropium [place] (Atrovent 0.02% Nebulizer -) 1 amp NEB RQID [facility] Last Admin: 02/19/18 16:02 Dose: 1 amp Lactulose (Cephulac (Oral Use)) 20 gm PO DAILY PRN PRN Reason: CONSTIPATION Melatonin (Melatonin) 5 mg PO HSMR1 [facility] Last Admin: 02/19/18 02:46 Dose: Not Given Methyl Salicylate ([place] -) 1 applic TP BID [facility] Last Admin: 02/19/18 09:45 Dose: 1 applic Mometasone Furoate (Asmanex 220mcg -) 2 puff IH BID [facility] Last Admin: 02/19/18 09:45 Dose: 2 puff Multivitamins/Minerals/Vitamin C (Tab-A-Vit -) 1 tab PO DAILY [facility] Last Admin: 02/19/18 09:44 Dose: 1 tab Non-Formulary Medication (Umeclidinium [place] [Incruse Ellipta]) 1 puff IH DAILY [facility] Ranitidine HCl (Zantac -) 150 mg PO DAILY [facility] Last Admin: 02/19/18 09:44 Dose: 150 mg Thiamine HCl (Vitamin B1 -) 100 mg PO DAILY [facility] Last Admin: 02/19/18 09:44 Dose: 100 mg - Objective Vital Signs: Vital Signs Temperature 98 F 02/19/18 14:00 Pulse Rate 91 H 02/19/18 14:00 Respiratory Rate 20 02/19/18 14:00 Blood Pressure 146/52 L 02/19/18 14:00 O2 Sat by Pulse Oximetry (%) 96 02/19/18 09:00 Constitutional: Yes: No Distress Eyes: Yes: WNL HENT: Yes: WNL Neck: Yes: WNL Cardiovascular: Yes: Pulse Irregular, S1, S2 (No MRHG) Respiratory: Yes: Regular, CTA Bilaterally Edema: No Neurological: Yes: Oriented Labs: CBC, BMP 02/19/18 06:30 02/19/18 06:30 INR, PTT INR 1.08 (0.83-1.09) 02/18/18 05:44 Assessment/Plan 82 F with newly noted Afib and dyspnea with minimally elevated TP level. Echocardiogram was technically difficult without overt wall motion abnormalities and no valvular pathology. SOB Her dyspnea is not likely to be from significant heart failure. CT chest and exam does not support this. Likely to have COPD. Afib with adequate HR control. Check dig level. Would consider using anticoagulation to reduce stroke risk. Diltiazem 30mg bid. Elevated TP. Minimally elevated without dynamic change or ECG abnormality. Unlikely to be due to ACS and not related to patients respiratory symptoms.
--- NOTE | 2018-02-19 18:02 | DS ---
Physical Exam: SUBJECTIVE: Patient seen and examined, she is in no distress, eating her breakfast OBJECTIVE: Vital Signs Period Temp Pulse Resp BP Sys/Pimentel Pulse Ox Last 24 Hr 98 F-99.2 F 70-91 20-20 120-146/52-73 96-97 PHYSICAL EXAM GENERAL: The patient is awake, alert, and oriented to place and person and follow commands HEAD: Normal with no signs of trauma. EYES: PERRL, extraocular movements intact, sclera anicteric, conjunctiva clear. ENT: Ears normal, nares patent, oropharynx clear without exudates, moist mucous membranes. NECK: Trachea midline, full range of motion, supple. LUNGS: Breath sounds equal, clear to auscultation bilaterally, no accessory muscle use. on 2L NC HEART: Regular rate and rhythm, S1, S2 ABDOMEN: Soft, nontender, nondistended, normoactive bowel sounds, no guarding, no rebound, no hepatosplenomegaly, no masses. EXTREMITIES: 2+ pulses, warm, well-perfused, no edema. NEUROLOGICAL: Cranial nerves II through XII grossly intact. Normal speech, gait not observed. PSYCH: Normal mood, normal affect. SKIN: Warm, dry, normal turgor, no rashes or lesions noted. LABS Laboratory Results - last 24 hr 02/18/18 02/18/18 02/19/18 18:00 18:35 06:30 WBC 9.7 RBC 4.10 Hgb 12.4 Hct 35.9 MCV 87.6 MCH 30.2 MCHC 34.4 RDW 15.8 H Plt Count 237 MPV 8.5 Absolute Neuts (auto) 7.3 Neutrophils % 75.5 Lymphocytes % 15.9 Monocytes % 6.8 Eosinophils % 1.1 Basophils % 0.7 Nucleated RBC % 0 Anticoagulation Therapy No Result Required. Puncture Site No Result Required. ABG pH 7.47 H ABG pCO2 at Pt Temp 52.0 H ABG pO2 at Pt Temp 54.6 L ABG HCO3 37.3 H ABG O2 Sat (Measured) 88.6 L ABG O2 Content 15.4 ABG Base Excess 11.8 H Freeman Test Positive O2 Delivery Device No Result Required. Oxygen Flow Rate No Result Required. Vent Mode No Result Required. Vent Rate No Result Required. Mechanical Rate No Result Required. Pressure Support Vent No Result Required. Sodium Potassium Chloride Carbon Dioxide Anion Gap BUN Creatinine Creat Clearance w eGFR Random Glucose Calcium Phosphorus Magnesium Total Bilirubin AST ALT Alkaline Phosphatase Troponin I 0.14 H Total Protein Albumin Triglycerides Cholesterol Total LDL Cholesterol HDL Cholesterol 02/19/18 06:30 WBC RBC Hgb Hct MCV MCH MCHC RDW Plt Count MPV Absolute Neuts (auto) Neutrophils % Lymphocytes % Monocytes % Eosinophils % Basophils % Nucleated RBC % Anticoagulation Therapy Puncture Site ABG pH ABG pCO2 at Pt Temp ABG pO2 at Pt Temp ABG HCO3 ABG O2 Sat (Measured) ABG O2 Content ABG Base Excess Freeman Test O2 Delivery Device Oxygen Flow Rate Vent Mode Vent Rate Mechanical Rate Pressure Support Vent Sodium 140 Potassium 3.8 Chloride 97 L Carbon Dioxide 37 H Anion Gap 5 L BUN 20 H Creatinine 0.7 Creat Clearance w eGFR > 60 Random Glucose 87 Calcium 8.9 Phosphorus 4.3 Magnesium 2.3 Total Bilirubin 0.9 AST 12 L ALT 13 Alkaline Phosphatase 70 Troponin I Total Protein 6.5 Albumin 2.9 L Triglycerides 267 H Cholesterol 183 Total LDL Cholesterol 108 H HDL Cholesterol 37 L HOSPITAL COURSE: Date of Admission:02/18/18 Date of Discharge: 02/19/18 she is a 82 y/O F W dementia, severe COPD and chronic hypoxic respiratory failure on Home O2 and CPAP at home , PHTN, XI, BIPAP at night, afib( on dig/ dilt), HFPEF. she was initially sent to the sleep study for resetting the BIPAP / CPAP and she she was SOB she was sent to the ED. in the ED she is pleasnatly demented, on 2l NC sat 95% and has orthopnea, unclear the acuity of the complaints in the ED in the setting of orthopnea,elevated ProBNP in 1200 despite of lack of peripheral edema, lack of Pulmonary edema or pleural effusion on CXR she was given IV lasix. she also was found to have elevated troponin with NL CPK , EKG of afib with non significant TW abnormalities in the 1, AVL leads.( no previous EKG). she was evaluated by pulmonology and Cardiology services and no acute ischemic or COPD/ CHF exacerbation was diagnosed at this time. no need for intervention. She had an episode of bradycardia over night X1 which corelates with most likely XI. Dig level was checked in theraputic range. She was also found to have episodes of bradycardia and digoxin level was sent which was WNL. patient is stable to be DCed back to the NH with no change in her long-term medication regimen Minutes to complete discharge: 45 Discharge Summary Reason For Visit: SOB,CHF,ELEVATED TROPONIN Current Active Problems Afib (Acute) CHF exacerbation (Acute) COPD (chronic obstructive pulmonary disease) (Acute) Elevated troponin (Acute) Hypercapnia (Acute) XI (obstructive sleep apnea) (Acute) Shortness of breath (Acute) Condition: Guarded - Instructions - Home Medications Comprehensive Discharge Medication List: Ambulatory Orders Aspirin 81 mg PO DAILY 02/18/18 Digoxin [Lanoxin] 125 mcg PO 02/18/18 Digoxin [Lanoxin] 250 mcg PO 02/18/18 Diltiazem [Cardizem -] 30 mg PO BID 02/18/18 Famotidine 20 mg PO DAILY 02/18/18 Furosemide [Lasix] 60 mg PO DAILY 02/18/18 Lactulose 20 gm PO PRN 02/18/18 Levalbuterol HCl [Xopenex] 1.25 mg IH Q8H 02/18/18 Melatonin 5 mg PO HSMR1 02/18/18 Menthol [Bengay Ultra Strength] 1 each TP BID 02/18/18 Mometasone Furoate [Asmanex 220Mcg -] 2 inh IH BID 02/18/18 Multivitamins [Tab-A-Vit -] 1 tab PO DAILY 02/18/18 Simvastatin [Zocor] 10 mg PO HS 02/18/18 Thiamine HCl [Vitamin B-1] 100 mg PO DAILY 02/18/18 Umeclidinium [place] [Incruse Ellipta] 1 puff IH DAILY 02/18/18 This patient is new to me today: No Emergency Visit: No Critical Care patient: No - Discharge Referral Referred to [facility] Med P.C.: No
[2018-02-19] MEDS: ATORVASTATIN CA 10 MG TABLET (FP) PO SCH (22:14)
[2018-02-20] MEDS: IPRATROPIUM BR 0.02% 0.5 MG/2.5 ML VIAL.NEB. NEB SCH ×4 (09:00→20:42)
[2018-02-20] MEDS: dilTIAZem HCL 30 MG TABLET (FP) PO SCH ×2 (09:41→21:38)
[2018-02-20] MEDS: FUROSEMIDE 20 MG TABLET (FP) PO SCH (09:41)
[2018-02-20] MEDS: RANITIDINE HCL 150 MG TABLET (FP) PO SCH (09:42)
[2018-02-20] MEDS: HEPARIN NA (PORCINE) 5,000 UNITS/ML 1ML VIAL SQ SCH ×2 (09:42→21:38)
[2018-02-20] MEDS: ASPIRIN 81 MG CHEWABLE TABLETS PO SCH (09:42)
[2018-02-20] MEDS: THIAMINE HCL 100 MG TABLET (FP) PO SCH (09:42)
[2018-02-20] MEDS: MULTIVITAMINS (DAILY MVI) TABLET (FP) PO SCH (09:42)
[2018-02-20] MEDS: METHYL SALICYLATE/MENTHOL OINT 30 GM TUBE TP SCH ×2 (09:43→21:39)
[2018-02-20] MEDS: MOMETASONE FUROATE 220 MCG/IH INHALER IH SCH ×2 (09:43→21:39)
[2018-02-20] MEDS: DIGOXIN 0.25 MG TABLET (FP) PO SCH (10:00)
--- NOTE | 2018-02-20 12:27 | PN ---
Progress Note (short form) - Note Progress Note: PULMONARY OFFERS NO COMPLAINTS Constitutional: Yes: Calm Eyes: Yes: EOM Intact HENT: Yes: Normocephalic Neck: Yes: Trachea Midline Cardiovascular: Yes: Pulse Irregular, S1, S2 Respiratory: Yes: Diminished (Bilateral Bases) ...Clubbing: No Gastrointestinal: Yes: Normal Bowel Sounds, Soft, Abdomen, Obese Edema: No Neurological: Yes: Alert LABS REVIEWED Imaging NOTED - Problems (1) COPD (chronic obstructive pulmonary disease) Code(s): J44.9 - CHRONIC OBSTRUCTIVE PULMONARY DISEASE, UNSPECIFIED (2) Afib Code(s): I48.91 - UNSPECIFIED ATRIAL FIBRILLATION (3) CHF exacerbation Code(s): I50.9 - HEART FAILURE, UNSPECIFIED Qualifiers: Heart failure type: unspecified Qualified Code(s): I50.9 - Heart failure, unspecified (4) Shortness of breath Code(s): R06.02 - SHORTNESS OF BREATH (5) XI (obstructive sleep apnea) Code(s): G47.33 - OBSTRUCTIVE SLEEP APNEA (ADULT) (PEDIATRIC) (6) Hypercapnia Code(s): R06.89 - OTHER ABNORMALITIES OF BREATHING O2 SUPPLEMENTATION NEEDED BRONCHODILATORS GENTLE DIURESIS DIG/DILTIAZEM/RATE CONTROL NEEDS A/C IF NO ABSOLUTE CONTRAINDICATION Hazel HILTON MD Problem List - Problems (1) COPD (chronic obstructive pulmonary disease) Code(s): J44.9 - CHRONIC OBSTRUCTIVE PULMONARY DISEASE, UNSPECIFIED (2) Afib Code(s): I48.91 - UNSPECIFIED ATRIAL FIBRILLATION (3) CHF exacerbation Code(s): I50.9 - HEART FAILURE, UNSPECIFIED Qualifiers: Heart failure type: unspecified Qualified Code(s): I50.9 - Heart failure, unspecified (4) Shortness of breath Code(s): R06.02 - SHORTNESS OF BREATH (5) XI (obstructive sleep apnea) Code(s): G47.33 - OBSTRUCTIVE SLEEP APNEA (ADULT) (PEDIATRIC) (6) Hypercapnia Code(s): R06.89 - OTHER ABNORMALITIES OF BREATHING
[2018-02-20] MEDS: ATORVASTATIN CA 10 MG TABLET (FP) PO SCH (21:38)
[2018-02-20] MEDS: MELATONIN 5 MG TABLETS PO SCH ×2 (21:38)
[2018-02-21] MEDS: IPRATROPIUM BR 0.02% 0.5 MG/2.5 ML VIAL.NEB. NEB SCH (07:45)
[2018-02-21] MEDS: THIAMINE HCL 100 MG TABLET (FP) PO SCH (09:23)
[2018-02-21] MEDS: MULTIVITAMINS (DAILY MVI) TABLET (FP) PO SCH (09:24)
[2018-02-21] MEDS: FUROSEMIDE 20 MG TABLET (FP) PO SCH (09:24)
[2018-02-21] MEDS: HEPARIN NA (PORCINE) 5,000 UNITS/ML 1ML VIAL SQ SCH (09:24)
[2018-02-21] MEDS: ASPIRIN 81 MG CHEWABLE TABLETS PO SCH (09:24)
[2018-02-21] MEDS: RANITIDINE HCL 150 MG TABLET (FP) PO SCH (09:24)
[2018-02-21] MEDS: dilTIAZem HCL 30 MG TABLET (FP) PO SCH (09:24)
[2018-02-21] MEDS: METHYL SALICYLATE/MENTHOL OINT 30 GM TUBE TP SCH (09:25)
[2018-02-21] MEDS: DIGOXIN 0.25 MG TABLET (FP) PO SCH (09:25)
[2018-02-21] MEDS: MOMETASONE FUROATE 220 MCG/IH INHALER IH SCH (09:25)
[2018-02-21 09:28] VITALS: PULSE 72
[2018-02-21 12:32] VITALS: BP 124/63; TEMP 97.5
--- NOTE | 2018-02-21 16:29 | EKG ---
Test Reason : Blood Pressure : / mmHG Vent. Rate : 072 BPM Atrial Rate : 053 BPM P-R Int : 000 ms QRS Dur : 096 ms QT Int : 376 ms P-R-T Axes : 000 -14 170 degrees QTc Int : 411 ms ATRIAL FIBRILLATION ABNORMAL ECG WHEN COMPARED WITH ECG OF 18-FEB-2018 13:40, Confirmed by RASHAD LANGE MD ([id number]) on 02/21/2018 4:29:31 PM Referred By: Confirmed By:RASHAD LANGE MD
== END 2018-02-21 11:12 | DRG 191 ==
LOC: JER 04:49 → JERBED 07:47 → J4W 17:16
PROVIDERS: ADMIT Internal Medicine; ATTEND Internal Medicine
DX: J44.1 Chronic obstructive pulmonary disease with (acute) exacerbation (principal); I50.22 Chronic systolic (congestive) heart failure; J96.11 Chronic respiratory failure with hypoxia; N39.0 Urinary tract infection, site not specified; I48.91 Unspecified atrial fibrillation; G47.33 Obstructive sleep apnea (adult) (pediatric); R00.1 Bradycardia, unspecified; K21.9 Gastro-esophageal reflux disease without esophagitis; I11.0 Hypertensive heart disease with heart failure; E78.5 Hyperlipidemia, unspecified
CPT/HCPCS: 36415; 36600; 71045-TC-FY; 71250-TC; 80053; 80061; 80162; 81003; 81015; 82550; 82803; 83721; 83735; 83880; 84100; 84484; 85025; 85610; 87086; 87186; 87899; 93005; 93010; 93306-TC; 94640; 99284-25; J1644